=== PATIENT | female | born 1990 | race Two or more races ===

== ENCOUNTER 2019-03-26 20:04 | Emergency (ER) | payer MEDICAID ==
[~2019-03-26] VITALS: Ht 154.9 cm; Wt 72.6 kg
[2019-03-26] MEDS ORDERED: IPRATROPIUM BROM 0.5 MG/2.5ML INH SOL NEB ONE (22:00)
[2019-03-26] MEDS ORDERED: ALBUTEROL SULF 2.5 MG/0.5ML(0.5%) NEB SOLN NEB ONE (22:00)
[2019-03-26] MEDS ORDERED: methylPREDNISolone SOD SUCC 125 MG/2 ML VL IM ONE (22:00)
[2019-03-26 23:14] VITALS: BP 99/59
== END 2019-03-26 23:31 | disposition home or self-care (01) ==
LOC: ER 20:10
DX: J06.9 Acute upper respiratory infection, unspecified (principal)
CPT/HCPCS: 71046; 81025; 94640; 96372; 99284; J2930; J7611; J7644